=== PATIENT | male | born 1990 | race Caucasian/White ===

== ENCOUNTER 2022-06-17 23:14 | Emergency (ER) | payer BC ==
[~2022-06-17] VITALS: Ht 180.3 cm; Wt 90.7 kg
--- NOTE | 2022-06-17 23:30 | NUR ---
Pt here for N/V/D. Able to make needs known, ambulates without assistance. No distress noted.
--- NOTE | 2022-06-17 23:34 | NUR ---
Dr. Amador at bedside for MSE
[2022-06-17] MEDS ORDERED: ONDANSETRON 4 MG/2 ML VIAL ONE (23:38)
[2022-06-17] MEDS ORDERED: IV LACTATED RINGERS SOLUTION 1,000 ML IV ONE (23:45)
[2022-06-17] MEDS ORDERED: DICYCLOMINE HCL LIQ 10 MG/5 ML UDC PO ONE (23:45)
[2022-06-17] MEDS ORDERED: ONDANSETRON 4 MG/2 ML VIAL IV ONE (23:45)
[2022-06-17] MEDS ORDERED: DICY20TA11 PO (23:59)
[2022-06-17] MEDS ORDERED: ONDA4TAB5 PO (23:59)
[2022-06-18 00:18] LABS: MEAN CORPUSCULAR HEMOGLOBIN 30.6 uug (23.8-33.4); MEAN CORPUSCULAR VOLUME 87.3 fL (73.0-96.2); PLATELET COUNT (AUTO) 280 K/uL (152-348)
[2022-06-18 00:27] LABS: CREATININE 1.2 mg/dL (0.6-1.3); POTASSIUM 4.8 mmol/L (3.5-5.1)
[2022-06-18 00:33] LABS: BILIRUBIN,DIRECT 0.2 mg/dL (0.0-0.2); BILIRUBIN,TOTAL 1.2 mg/dL (0.2-1.0); TOTAL PROTEIN, SERUM 9.3 g/dL (6.4-8.2)
[2022-06-18] MEDS ORDERED: DICYCLOMINE HCL LIQ 10 MG/5 ML UDC ONE (00:41)
--- NOTE | 2022-06-18 00:47 | NUR ---
Pt resting in bed at this time. No distress noted. IV infusing ordered fluids. Tolerated drinking water without nausea or vomiting
[2022-06-18 02:02] VITALS: BP 110/55
--- NOTE | 2022-06-18 02:02 | NUR ---
Patient discharged to home in stable condition. Written and verbal after care instructions given. Patient verbalizes understanding of instructions. Stressed follow up or return to ER for worsening s/s.
[2022-06-18 06:20] LABS: NUCLEATED RED BLOOD CELLS 0.1 /100WBC
[2022-06-18 08:48] LABS: BAND % (MANUAL) 9 % (0-10); EOSINOPHILS % (MANUAL) 1 % (0-8); LYMPHOCYTES % (MANUAL) 4 % (20-40); MONOCYTES % (MANUAL) 5 % (2-10); NEUTROPHILS % (MANUAL) 81 % (42-75)
== END 2022-06-18 02:03 | disposition home or self-care (01) ==
LOC: ER 23:18
DX: R11.2 Nausea with vomiting, unspecified (principal); R19.7 Diarrhea, unspecified; D72.829 Elevated white blood cell count, unspecified; Z90.49 Acquired absence of other specified parts of digestive tract
CPT/HCPCS: 99284; 96374; 96361; 36415; 80076; 80048; 83690; 85025; 85007; J2405; J7120; 70030-TC; A4663